=== PATIENT | female | born 1980 ===

== ENCOUNTER 2017-07-15 15:27 | Emergency (ER) | payer OTHER ==
[~2017-07-15] VITALS: Ht 165.1 cm; Wt 72.6 kg
[~2017-07-15 15:27] MED LIST: Norco 5-325 Ta1 EACH PO; Pepcid40 MG PO; SUCR1 PO
[2017-07-15] MEDS ORDERED: Triamcinolone A15 G3 (15:46)
[2017-07-15] MEDS ORDERED: Permethrin60 GM TP (15:46)
[2017-07-15] MEDS ORDERED: HYDHCL25 PO (16:34)
[2017-07-15] MEDS ORDERED: METPRE4DP PO (16:34)
== END 2017-07-15 16:52 | disposition home or self-care (01) ==
LOC: ER 15:27
DX: L25.9 Unspecified contact dermatitis, unspecified cause (principal); Z79.899 Other long term (current) drug therapy
CPT/HCPCS: 96372; 99283; J3301

== ENCOUNTER 2018-09-25 14:35 | Emergency (ER) | payer OTHER ==
[~2018-09-25] VITALS: Ht 165.1 cm; Wt 74.8 kg
[~2018-09-25 14:35] MED LIST changes: +HYDHCL25 PO; +METPRE4DP PO; +Permethrin60 GM TP; +Triamcinolone A15 G3
[2018-09-25 15:08] LABS: Source, Urine Clean Catch
[2018-09-25 15:17] LABS: Bilirubin, Urine Neg (Neg); Blood, Urine 3+ (Neg); Glucose Qualitative, Urine Neg (Neg); Ketones, Urine Neg (Neg); Leukocyte Esterase, Urine Neg (Neg); Nitrite, Urine Neg (Neg); Protein, Urine Neg (Neg); Specific Gravity, Urine 1.015 (1.003-1.022); Urobilinogen, Urine NORM (Normal)
[2018-09-25 15:24] LABS: Appearance, Urine Clear (Clear); Color, Urine Pale Yellow (P-Yellow)
[2018-09-25 15:27] LABS: Bacteria Few /hpf; Mucus Mod ({null, 0-Heavy}); Squamous Epithelial Cells Mod /hpf (Few); White Blood Cells, Urine 0-2 /hpf (0-5)
[2018-09-25] MEDS ORDERED: Robaxin-750750 MG PO (16:10)
== END 2018-09-25 16:16 | disposition home or self-care (01) ==
LOC: ER 14:35
PROVIDERS: Physician Assistant
DX: R07.89 Other chest pain (principal); F17.200 Nicotine dependence, unspecified, uncomplicated
CPT/HCPCS: 36415; 71046; 81001; 81025; 85379; 96374; 99283-25; J1885

== ENCOUNTER 2018-11-11 11:37 | Emergency (ER) | payer OTHER ==
[~2018-11-11] VITALS: Ht 165.1 cm; Wt 72.6 kg
[~2018-11-11 11:37] MED LIST changes: +Robaxin-750750 MG PO
== END 2018-11-11 14:21 | disposition left against medical advice (07) ==
LOC: ER 11:37
DX: Z53.21 Procedure and treatment not carried out due to patient leaving prior to being seen by health care provider (principal)

== ENCOUNTER → 2018-11-13 | Outpatient (CLI) | payer OTHER ==
[2018-11-15 08:07] LABS: HIV SCREEN 4TH GENERATION WRFX Non Reactive (Non Reactive)
[2018-11-17 12:07] LABS: CHLAMYDIA BY NAA Negative (Negative); GONOCOCCUS BY NAA Negative (Negative); TRICH VAG BY NAA Negative (Negative)
== END | disposition home or self-care (01) ==
LOC: LAB EV 12:41 → LAB SHORT 12:41
PROVIDERS: Physician Assistant Surgical
DX: N76.0 Acute vaginitis (principal)
CPT/HCPCS: 86592; 87070; 87205; 87389; 87491; 87591; 87661

== ENCOUNTER → 2019-04-09 | Outpatient (CLI) | payer OTHER ==
[2019-04-09 16:01] LABS: BASOPHILS ABSOLUTE AUTO 0.01 K/mm3 (0.00-0.23); BASOPHILS PERCENT AUTO 0 % (0-2); EOSINOPHILS ABSOLUTE AUTO 0.06 K/mm3 (0.00-0.68); EOSINOPHILS PERCENT AUTO 1 % (0-6); Hematocrit 41.4 % (33.0-51.0); Hemoglobin 13.7 g/dL (11.5-16.0); IMMATURE GRAN ABSOLUTE AUTO 0.01 K/mm3 (0.00-0.10); IMMATURE GRAN PERCENT AUTO 0 % (0-1); LYMPHOCYTES ABSOLUTE AUTO 1.74 K/mm3 (0.84-5.20); LYMPHOCYTES PERCENT AUTO 35 % (21-46); MONOCYTES ABSOLUTE AUTO 0.52 K/mm3 (0.16-1.47); MONOCYTES PERCENT AUTO 10 % (4-13); Mean Corpuscular HGB 27.7 pg (26.0-34.0); Mean Corpuscular HGB Conc 33.1 g/dL (31.5-36.5); Mean Corpuscular Volume 84 fL (80-100); Mean Platelet Volume 11.2 fL (9.1-12.4); NEUTROPHILS ABSOLUTE AUTO 2.66 K/mm3 (1.96-9.15); NEUTROPHILS PERCENT AUTO 53 % (41-73); Platelet Count 224 K/mm3 (150-400); RDW Coefficient Variation 12.5 % (11.7-14.2); RDW Standard Deviation 37.8 fL (35.1-46.3); Red Blood Cell Count 4.95 M/mm3 (3.80-5.20)
[2019-04-12 02:09] LABS: CHLAMYDIA TRACHOMATIS, NAA Negative (Negative); NEISSERIA GONORRHOEAE, NAA Negative (Negative)
== END | disposition home or self-care (01) ==
LOC: LAB EV 15:58 → LAB SHORT 15:58
PROVIDERS: Physician Assistant
DX: Z30.432 Encounter for removal of intrauterine contraceptive device (principal); R10.33 Periumbilical pain
CPT/HCPCS: 85025; 87070; 87205; 87491; 87591

== ENCOUNTER → 2019-06-07 | Outpatient (CLI) | payer OTHER ==
[2019-06-08 14:08] LABS: HPV 16 Negative (Negative); HPV 18 Negative (Negative); HPV OTHER HR TYPES Positive (Negative)
== END | disposition home or self-care (01) ==
LOC: LAB 11:17 → LAB SHORT 11:17
PROVIDERS: Obstetrics & Gynecology
DX: Z01.419 Encounter for gynecological examination (general) (routine) without abnormal findings (principal)
CPT/HCPCS: 87624; 87625; G0123

== ENCOUNTER → 2019-10-06 | Outpatient (CLI) | payer OTHER ==
[2019-10-08 14:10] LABS: CHLAMYDIA BY NAA Negative (Negative); GONOCOCCUS BY NAA Negative (Negative); TRICH VAG BY NAA Negative (Negative)
== END | disposition home or self-care (01) ==
LOC: LAB SHORT 15:00 → LAB EV 15:00
PROVIDERS: Nurse Practitioner
DX: Z11.3 Encounter for screening for infections with a predominantly sexual mode of transmission (principal); R30.9 Painful micturition, unspecified
CPT/HCPCS: 87077; 87086; 87186; 87491; 87591; 87661

== ENCOUNTER 2019-12-09 08:33 | Day surgery (SDC) | payer OTHER ==
[~2019-12-09] VITALS: Ht 165.1 cm; Wt 80.2 kg
[2019-12-09] MEDS ORDERED: OMEP20ER PO (08:54)
== END 2019-12-09 12:41 | disposition home or self-care (01) ==
LOC: ORSCSDS 08:33
PROVIDERS: Podiatrist Foot & Ankle Surgery
PROC: 0SGK04Z Fusion of Right Tarsometatarsal Joint with Internal Fixation Device, Open Approach (ICD-10-PCS; principal; 2019-12-09 10:00)
PROC: 0QSQ04Z Reposition Right Toe Phalanx with Internal Fixation Device, Open Approach (ICD-10-PCS; principal; 2019-12-09 10:00)
PROC: 0SGP04Z Fusion of Right Toe Phalangeal Joint with Internal Fixation Device, Open Approach (ICD-10-PCS; principal; 2019-12-09 10:00)
DX: M20.61 Acquired deformities of toe(s), unspecified, right foot (principal); M20.11 Hallux valgus (acquired), right foot; M20.41 Other hammer toe(s) (acquired), right foot; K21.9 Gastro-esophageal reflux disease without esophagitis; Z79.899 Other long term (current) drug therapy
CPT/HCPCS: A9270; C1713; C1776; J0171; J0690; J1100; J1885; J2250; J2405; J2704; J2765; J3010; J7120

== ENCOUNTER 2019-12-12 01:01 | Emergency (ER) | payer OTHER ==
[~2019-12-12] VITALS: Ht 165.1 cm; Wt 78.5 kg
[~2019-12-12 01:01] MED LIST changes: +OMEP20ER PO
[2019-12-12] MEDS ORDERED: BISA5EC PO (01:46)
[2019-12-12] MEDS ORDERED: MAGCIT300 PO (01:46)
== END 2019-12-12 02:16 | disposition home or self-care (01) ==
LOC: ER 01:01
DX: K59.00 Constipation, unspecified (principal); Z79.899 Other long term (current) drug therapy
CPT/HCPCS: 99283

== ENCOUNTER 2019-12-12 05:25 | Emergency (ER) | payer OTHER ==
[~2019-12-12] VITALS: Ht 165.1 cm; Wt 78.5 kg
[~2019-12-12 05:25] MED LIST changes: +BISA5EC PO; +MAGCIT300 PO
== END 2019-12-12 08:54 | disposition home or self-care (01) ==
LOC: ER 05:25
DX: K59.00 Constipation, unspecified (principal); Z79.899 Other long term (current) drug therapy
CPT/HCPCS: 74019; 99283-25

== ENCOUNTER → 2020-09-10 | Outpatient (CLI) | payer OTHER ==
[2020-09-11 10:31] LABS: Candida species (DNA Probe) Positive (NEGATIVE); G. vaginalis (DNA Probe) Negative (NEGATIVE); T. vaginalis (DNA Probe) Negative (NEGATIVE)
== END | disposition home or self-care (01) ==
LOC: LAB SHORT 12:02 → LAB 12:02
PROVIDERS: Family Medicine
DX: B37.3 Candidiasis of vulva and vagina (principal)
CPT/HCPCS: 87480; 87510; 87660

== ENCOUNTER → 2021-01-09 | Outpatient (CLI) | payer OTHER ==
[2021-01-10 10:54] LABS: Candida species (DNA Probe) Negative (NEGATIVE); G. vaginalis (DNA Probe) Positive (NEGATIVE); T. vaginalis (DNA Probe) Negative (NEGATIVE)
== END | disposition home or self-care (01) ==
LOC: LAB SHORT 14:00 → LAB 14:00
PROVIDERS: Obstetrics & Gynecology
DX: N89.8 Other specified noninflammatory disorders of vagina (principal)
CPT/HCPCS: 87480; 87510; 87660

== ENCOUNTER → 2021-01-25 | Outpatient (CLI) | payer OTHER ==
[2021-01-26 10:57] LABS: Candida species (DNA Probe) Positive (NEGATIVE); G. vaginalis (DNA Probe) Positive (NEGATIVE); T. vaginalis (DNA Probe) Negative (NEGATIVE)
== END | disposition home or self-care (01) ==
LOC: LAB SHORT 12:59 → LAB 12:59
PROVIDERS: Obstetrics & Gynecology
DX: N76.0 Acute vaginitis (principal)
CPT/HCPCS: 87480; 87510; 87660

== ENCOUNTER → 2021-02-14 | Outpatient (CLI) | payer OTHER ==
[2021-02-15 10:58] LABS: Candida species (DNA Probe) Negative (NEGATIVE); G. vaginalis (DNA Probe) Positive (NEGATIVE); T. vaginalis (DNA Probe) Negative (NEGATIVE)
== END | disposition home or self-care (01) ==
LOC: LAB SHORT 15:59
PROVIDERS: Family Medicine
DX: N89.8 Other specified noninflammatory disorders of vagina (principal)
CPT/HCPCS: 87480; 87510; 87660

== ENCOUNTER → 2021-05-30 | Outpatient (CLI) | payer OTHER ==
[2021-06-01 03:08] LABS: CHLAMYDIA TRACHOMATIS, NAA Negative (Negative)
== END ==
LOC: LAB SHORT 09:30 → LAB 09:30
PROVIDERS: Emergency Medicine
DX: Z20.2 Contact with and (suspected) exposure to infections with a predominantly sexual mode of transmission (principal)
CPT/HCPCS: 87491; 87591

== ENCOUNTER → 2021-09-09 | Outpatient (CLI) | payer OTHER ==
[2021-09-10 10:53] LABS: Candida species (DNA Probe) Negative (NEGATIVE); G. vaginalis (DNA Probe) Positive (NEGATIVE); T. vaginalis (DNA Probe) Negative (NEGATIVE)
== END | disposition home or self-care (01) ==
LOC: LAB SHORT 16:31 → LAB 16:31
PROVIDERS: Advanced Practice Midwife
DX: N76.0 Acute vaginitis (principal)
CPT/HCPCS: 87480; 87510; 87660

== ENCOUNTER 2022-06-19 20:52 | Emergency (ER) | payer OTHER ==
[~2022-06-19] VITALS: Ht 167.6 cm; Wt 74.8 kg
[2022-06-19 21:01] VITALS: BP 118/90
[2022-06-19] MEDS ORDERED: CYCL10 PO (22:09)
== END 2022-06-19 21:57 | disposition home or self-care (01) ==
LOC: ER 20:52
DX: M54.41 Lumbago with sciatica, right side (principal); Z79.899 Other long term (current) drug therapy
CPT/HCPCS: 99283; A9270

== ENCOUNTER → 2022-06-27 | Outpatient (CLI) | payer OTHER ==
[~2022-06-27] MED LIST changes: +CYCL10 PO
[2022-06-28 09:30] LABS: Candida species (DNA Probe) Negative (NEGATIVE); G. vaginalis (DNA Probe) Positive (NEGATIVE); T. vaginalis (DNA Probe) Negative (NEGATIVE)
== END | disposition home or self-care (01) ==
LOC: LAB 09:06 → LAB SHORT 09:06
PROVIDERS: Physician Assistant
DX: N89.8 Other specified noninflammatory disorders of vagina (principal)
CPT/HCPCS: 87480; 87510; 87660

== ENCOUNTER → 2022-12-06 | Outpatient (CLI) | payer OTHER ==
[2022-12-06 13:52] LABS: Candida species (DNA Probe) Negative (NEGATIVE); G. vaginalis (DNA Probe) Negative (NEGATIVE); T. vaginalis (DNA Probe) Negative (NEGATIVE)
[2022-12-08 22:08] LABS: CHLAMYDIA TRACHOMATIS, NAA Negative (Negative)
== END ==
LOC: LAB SHORT 09:25 → LAB 09:25
PROVIDERS: Physician Assistant
DX: Z11.3 Encounter for screening for infections with a predominantly sexual mode of transmission (principal)
CPT/HCPCS: 87480; 87491; 87510; 87591; 87660

== ENCOUNTER 2023-12-02 18:11 | Emergency (ER) | payer OTHER ==
[~2023-12-02] VITALS: Ht 165.1 cm; Wt 83.9 kg
[2023-12-03] MEDS ORDERED: Diazepam 5 MG / ML 2ML SYR IV ONE (00:40)
[2023-12-03] MEDS ORDERED: Acetaminophen 500 MG Tab PO ONE (00:40)
[2023-12-03] MEDS ORDERED: Ketorolac Tromethamine 30mg Vial IV ONE (00:40)
[2023-12-03] MEDS ORDERED: DIAZ2 PO (00:43)
[2023-12-03 01:00] VITALS: BP 140/74
== END 2023-12-03 01:21 | disposition home or self-care (01) ==
LOC: ER 18:11
DX: S63.502A Unspecified sprain of left wrist, initial encounter (principal); S63.501A Unspecified sprain of right wrist, initial encounter; S80.02XA Contusion of left knee, initial encounter; S20.211A Contusion of right front wall of thorax, initial encounter; S09.90XA Unspecified injury of head, initial encounter; Z59.89 Other problems related to housing and economic circumstances; Z79.899 Other long term (current) drug therapy; V89.2XXA Person injured in unspecified motor-vehicle accident, traffic, initial encounter
CPT/HCPCS: 70450; 73090; 73562-LT; 96374; 96375; 99284-25; A9270; J1885; J3360